=== PATIENT | female | born 1975 | race Caucasian/White ===

== ENCOUNTER 2019-06-06 23:06 | Emergency (ER) | payer MEDICAID ==
--- NOTE | 2019-06-06 23:41 | EDM.PDOC ---
ED HPI GENERAL MEDICAL PROBLEM - General Chief Complaint: Cardiovascular Problem Stated Complaint: [facility] Time Seen by Provider: 06/06/19 23:20 Source of Information: Reports: Patient, EMS History Limitations: Reports: Other (Patient admits being under the effects of methamphetamine) - History of Present Illness INITIAL COMMENTS - FREE TEXT/NARRATIVE: 44-year-old female feels fluttering in her chest, intermittent chest discomfort and pressure. This is been bothering her for the last 4 hours, she admits trying methamphetamine for the first time earlier in the afternoon. She also has some chronic upper abdominal discomfort which has been worked up and evaluated but nothing is been found. She is concerned about that as well. She feels like her heart is fluttering, discomfort is radiating up into the left neck. When EMS arrived she was hypertensive and anxious, 324 mg of aspirin and 2 sprays of nitroglycerin were given in route. She has now calmed down and her blood pressure is normal but she still feels like her heart is irregular and fluttering, however she is on cardiac monitoring and she is in a normal sinus rhythm with a rate around 70. She has no ectopics. She had blood test just 2 weeks ago and they were working upper abdominal pain. Onset: Unknown/Unsure Associated Symptoms: Reports: Chest Pain, Malaise, Other (Palpitations, chest pressure, abdominal pressure). Denies: Confusion, Cough, Diaphoresis, Nausea/ Vomiting, Weakness - Related Data Allergies Allergy/AdvReac Type Severity Reaction Status Date / Time amoxicillin Allergy Hives Verified 06/06/19 23:12 Sulfa (Sulfonamide Allergy Hives Verified 06/06/19 23:12 Antibiotics) Home Meds: Home Meds . [Unable to Verify Home Med List] 06/06/19 [History] Past Medical History Respiratory History: Reports: COPD Genitourinary History: Reports: Renal Calculus Neurological History: Reports: Migraines Psychiatric History: Reports: Dementia Endocrine/Metabolic History: Reports: Obesity/BMI 30+ Hematologic History: Reports: Other (See Below) Other Hematologic History: vitamin D deficiency Oncologic (Cancer) History: Reports: Malignant Melanoma - Past Surgical History Head Surgeries/Procedures: Reports: None Respiratory Surgical History: Reports: None Female Surgical History: Reports: None Endocrine Surgical History: Reports: None Neurological Surgical History: Reports: None Oncologic Surgical History: Reports: Other (See Below) Other Oncologic Surgeries/Procedures: surgically removed Dermatological Surgical History: Reports: None Social & Family History - Family History Family Medical History: Noncontributory - Tobacco Use Smoking Status *Q: Current Every Day Smoker Years of Tobacco use: 29 Packs/Tins Daily: 1 - Caffeine Use Caffeine Use: Reports: Soda - Recreational Drug Use Recreational Drug Use: Yes Drug Use in Last 12 Months: Yes Recreational Drug Type: Reports: Methamphetamine Recreational Drug Use Frequency: Rarely ED ROS GENERAL - Review of Systems Review Of Systems: See Below Constitutional: Reports: Malaise. Denies: Fever, Chills HEENT: Reports: No Symptoms Respiratory: Reports: Shortness of Breath Cardiovascular: Reports: Chest Pain, Palpitations Endocrine: Reports: No Symptoms GI/Abdominal: Reports: Abdominal Pain. Denies: Nausea, Vomiting : Reports: No Symptoms Musculoskeletal: Reports: Other (Intermittent right ankle and leg swelling) Skin: Reports: No Symptoms ED EXAM, GENERAL - Physical Exam Exam: See Below Exam Limited By: No Limitations General Appearance: Alert, Anxious Eye Exam: Bilateral Eye: Normal Inspection Head: Atraumatic Neck: Supple Respiratory/Chest: No Respiratory Distress, Lungs Clear Cardiovascular: Regular Rate, Rhythm. No: Tachycardia, Extra Beats GI/Abdominal: Soft, Tender (Some mild discomfort to palpation across the upper abdomen but no guarding or rebound) Extremities: Normal Inspection Neurological: Alert, Oriented, No Motor/Sensory Deficits Psychiatric: Anxious Skin Exam: Warm, Dry Course - Vital Signs Last Recorded V/S: Last Vital Signs Temp 96.9 F 06/06/19 23:07 Pulse 63 06/06/19 23:07 Resp 16 06/06/19 23:07 BP 122/71 06/06/19 23:07 Pulse Ox 98 06/06/19 23:07 - Re-Assessments/Exams Free Text/Narrative Re-Assessment/Exam: 06/06/19 23:40 EKG reviewed by EMS was normal. Cardiac monitoring is normal. I explained to the patient that the symptoms are very likely effects from the methamphetamine she took earlier today. I offered her further workup but she declined. I recommended increasing her omeprazole to twice daily for the next 7-14 days. Departure - Departure Time of Disposition: 23:55 Disposition: Home, Self-Care 01 Clinical Impression: Palpitations, Atypical chest pain Instructions: Nonspecific Chest Pain, [id number] Referrals: PCP,None [Primary Care Provider] - Forms: ED Department Discharge Care Plan Goals: Consider increasing her omeprazole to twice daily for 7-14 days. Increase diet and activity as tolerated and recheck in 2-3 days if not improving satisfactorily.
== END 2019-06-06 23:55 | disposition home or self-care (01) ==
LOC: JP.ED 23:06
DX: R07.89 Other chest pain (principal); R00.2 Palpitations; F17.210 Nicotine dependence, cigarettes, uncomplicated; Z88.1 Allergy status to other antibiotic agents; Z88.2 Allergy status to sulfonamides
CPT/HCPCS: 99284

== ENCOUNTER 2019-08-06 18:21 | Emergency (ER) | payer MEDICAID ==
[2019-08-06] MEDS ORDERED: Lactated Ringers 1,000 ML IV ONE (19:12)
[2019-08-06] MEDS ORDERED: Alum Hydrox/Mag Hydrox/Simeth 15 ML, Lidocaine 2% 15 ML PO ONE ×2 (19:12)
--- NOTE | 2019-08-06 19:18 | EDM.PDOC ---
ED HPI GENERAL MEDICAL PROBLEM - General Chief Complaint: Abdominal Pain Stated Complaint: PAIN IN CHEST FOR YEARS Time Seen by Provider: 08/06/19 19:00 Source of Information: Reports: Patient, Old Records, RN History Limitations: Reports: No Limitations - History of Present Illness INITIAL COMMENTS - FREE TEXT/NARRATIVE: 44 yo female sees a provider in [place], [place]. Has been to this provider for intermittent epigastric pain. Was told that if this pain came back to return to the clinic. Minnie has now had the pain for a week continuously and it is getting worse. Even so, she has not contacted her primary about this. Denies fever or vomiting. No BM for the past nearly a week. No black or bloody stools. Reports dizziness with standing. No self treatment. Has had a tubal ligation as her only abdominal surgery. Denies heavy or daily alcohol use. States that certain foods make her pain worse, alvarado. peanuts. Had roast beef before coming in that really made her pain worse. Thinks its her gallbladder. The last stool she did have was loose. Onset: Gradual Onset Date: 07/30/19 Duration: Week(s): (1), Getting Worse Location: Reports: Abdomen (epigastric) Quality: Reports: Ache Severity: Severe Improves with: Reports: None Worsens with: Reports: Other (time) Context: Reports: Other (see HPI) Associated Symptoms: Reports: No Other Symptoms Treatments ARRT TECHNOLOGIST: Reports: Other (see below) (none) Left Upper Pain Score (Numeric/FACES): 10 - Related Data Allergies Allergy/AdvReac Type Severity Reaction Status Date / Time amoxicillin Allergy Hives Verified 08/06/19 18:41 Sulfa (Sulfonamide Allergy Hives Verified 08/06/19 18:41 Antibiotics) Home Meds: Home Meds Albuterol [Proventil Neb Soln] 1 dose IH ASDIRECTED 08/06/19 [History] Omeprazole 20 mg PO DAILY 08/06/19 [History] Propranolol [Inderal LA 24 Hr] 80 mg PO DAILY 08/06/19 [History] Past Medical History HEENT History: Reports: Impaired Vision Respiratory History: Reports: COPD Genitourinary History: Reports: Renal Calculus [employer] History: Reports: , Other (See Below) Neurological History: Reports: Migraines Psychiatric History: Reports: Anxiety Endocrine/Metabolic History: Reports: Obesity/BMI 30+ Hematologic History: Reports: Other (See Below) Other Hematologic History: vitamin D deficiency Oncologic (Cancer) History: Reports: Cervix, Malignant Melanoma - Past Surgical History Head Surgeries/Procedures: Reports: None HEENT Surgical History: Reports: None Respiratory Surgical History: Reports: None Female Surgical History: Reports: None, Cervical Cryotherapy Endocrine Surgical History: Reports: None Neurological Surgical History: Reports: None Oncologic Surgical History: Reports: Other (See Below) Other Oncologic Surgeries/Procedures: surgically removed Dermatological Surgical History: Reports: None Social & Family History - Family History Family Medical History: Noncontributory - Tobacco Use Smoking Status *Q: Current Every Day Smoker Years of Tobacco use: 30 Packs/Tins Daily: 1 Used Tobacco, but Quit: No Second Hand Smoke Exposure: Yes - Caffeine Use Caffeine Use: Reports: Coffee, Soda - Recreational Drug Use Recreational Drug Use: No ED ROS GENERAL - Review of Systems Review Of Systems: See Below Constitutional: Reports: No Symptoms HEENT: Reports: No Symptoms Respiratory: Reports: No Symptoms Cardiovascular: Reports: No Symptoms Endocrine: Reports: No Symptoms GI/Abdominal: Reports: Abdominal Pain. Denies: Black Stool, Constipation, Diarrhea, Distension, Hematemesis, Hematochezia, Nausea, Vomiting : Reports: No Symptoms Musculoskeletal: Reports: No Symptoms Skin: Reports: No Symptoms Neurological: Reports: No Symptoms Psychiatric: Reports: No Symptoms ED EXAM, GI/ABD - Physical Exam Exam: See Below Exam Limited By: No Limitations General Appearance: Alert, WD/WN, Mild Distress Eyes: Bilateral: Normal Appearance Ears: Normal External Exam, Normal Canal, Hearing Grossly Normal Nose: Normal Inspection, No Blood Throat/Mouth: Normal Inspection, Normal Lips, Normal Oropharynx, Normal Voice, No Airway Compromise Head: Atraumatic, Normocephalic Neck: Normal Inspection Respiratory/Chest: No Respiratory Distress, Lungs Clear, Normal Breath Sounds, No Accessory Muscle Use Cardiovascular: Regular Rate, Rhythm, No Edema, Tachycardia GI/Abdominal Exam: Normal Bowel Sounds, Soft, No Distention, Tender (epigastrium ), Abnormal Bowel Sounds (decreased). No: Non-Tender, Distended, Guarding, Rigid, Rebound Extremities: Normal Inspection, Normal Range of Motion, Non-Tender, No Pedal Edema Neurological: Alert, Oriented, CN II-XII Intact, Normal Cognition, No Motor/ Sensory Deficits Psychiatric: Normal Affect, Normal Mood Skin Exam: Warm, Dry, Intact, Normal Color, No Rash Course - Vital Signs Text/Narrative:: No change with GI cocktail. Last Recorded V/S: Last Vital Signs Temp 35.9 C 08/06/19 18:44 Pulse 128 H 08/06/19 19:33 Resp 36 H 08/06/19 19:33 BP 169/105 H 08/06/19 19:33 Pulse Ox 100 08/06/19 19:33 - Orders/Labs/Meds Orders: Active Orders 24 hr Category Date Time Status Enema [RC] ASDIRECTED Care 08/06/19 21:06 Active Labs: Laboratory Tests 08/06/19 08/06/19 08/06/19 Range/Units 19:12 19:12 19:49 WBC 9.2 (4.5-11.0) K/uL RBC 4.99 (3.30-5.50) M/uL Hgb 15.8 H (12.0-15.0) g/dL Hct 46.8 (36.0-48.0) % MCV 94 (80-98) fL MCH 32 H (27-31) pg MCHC 34 (32-36) % Plt Count 178 (150-400) K/uL Sodium 139 L (140-148) mmol/L Potassium 3.1 L (3.6-5.2) mmol/L Chloride 101 (100-108) mmol/L Carbon Dioxide 23 (21-32) mmol/L Anion Gap 18.1 H (5.0-14.0) mmol/L BUN 9 (7-18) mg/dL Creatinine 1.0 (0.6-1.0) mg/dL Est Cr Clr Drug Dosing 52.10 mL/min Estimated GFR (MDRD) > 60 (>60) Glucose 89 (74-106) mg/dL Calcium 9.6 (8.5-10.1) mg/dL Magnesium 1.7 L (1.8-2.4) mg/dL Total Bilirubin 0.9 (0.2-1.0) mg/dL AST 18 (15-37) U/L ALT 35 (12-78) U/L Alkaline Phosphatase 86 (46-116) U/L Total Protein 7.4 (6.4-8.2) g/dL Albumin 3.9 (3.4-5.0) g/dL Globulin 3.5 (2.3-3.5) g/dL Albumin/Globulin Ratio 1.1 L (1.2-2.2) Lipase 304 (73-393) U/L Meds: Medications Discontinued Medications Generic Name Dose Route Start Last Admin Trade Name Freq PRN Reason Stop Dose Admin Al Hydroxide/Mg Hydroxide 15 0 ml 08/06/19 19:12 08/06/19 19:23 ml/ Lidocaine HCl 15 ml PO 08/06/19 19:13 30 ml ONETIME ONE Administration Hydromorphone HCl 1 mg 08/06/19 19:29 08/06/19 19:31 Dilaudid IVPUSH 08/06/19 19:30 1 mg ONETIME ONE Administration Lactated Ringer's 1,000 mls @ 1,000 mls/hr 08/06/19 19:12 08/06/19 19:24 Ringers, Lactated IV 08/06/19 20:11 1,000 mls/hr BOLUS ONE Administration Magnesium Oxide 800 mg 08/06/19 20:11 08/06/19 20:21 Magnesium Oxide PO 08/06/19 20:12 800 mg ONETIME ONE Administration Ondansetron HCl 4 mg 08/06/19 20:45 08/06/19 20:51 Zofran IVPUSH 08/06/19 20:46 4 mg ONETIME ONE Administration Polyethylene Glycol 34 gm 08/06/19 21:04 08/06/19 21:20 Miralax PO 08/06/19 21:05 34 gm ONETIME ONE Administration Potassium Chloride 20 meq 08/06/19 19:47 08/06/19 19:53 Potassium Chloride PO 08/06/19 19:48 20 meq ONETIME ONE Administration - Radiology Interpretation Free Text/Narrative:: Single view abdomen X-ray- Findings: The bowel gas pattern is nonobstructive. A moderate to large amount of stool is identified within the descending colon and distal transverse colon. Impression: Moderate stool. Nonobstructive bowel gas pattern Dictated by Naomi Felix MD @ Aug 06 2019 8:53PM Departure - Departure Time of Disposition: 21:30 Disposition: Home, Self-Care 01 Condition: Fair Clinical Impression: Biliary colic Constipation Qualifiers: Constipation type: slow transit constipation Qualified Code(s): K59.01 - Slow transit constipation - Discharge Information *PRESCRIPTION DRUG MONITORING PROGRAM REVIEWED*: No *COPY OF PRESCRIPTION DRUG MONITORING REPORT IN PATIENT [place]: No Instructions: Constipation, Adult, Cholelithiasis, [id number] Referrals: PCP,None [Primary Care Provider] - Forms: ED Department Discharge Additional Instructions: Take Miralax once or twice daily to keep bowels moving and soft. Take Zofran as needed for nausea control. Take [place] OR acetaminophen for pain relief. F/U with surgery regarding what is likely biliary colic. Avoid fat in your diet to avoid triggering gall bladder pain. Return as needed. - My Orders Last 24 Hours: My Active Orders 08/06/19 21:06 Enema [RC] ASDIRECTED - Assessment/Plan Last 24 Hours: My Active Orders 08/06/19 21:06 Enema [RC] ASDIRECTED
[2019-08-06] MEDS ORDERED: HYDROmorphone 1 MG/ML Syringe IVPUSH ONE (19:29)
[2019-08-06] MEDS ORDERED: Potassium Chloride 10 MEQ Cap.ER PO ONE (19:47)
[2019-08-06] MEDS ORDERED: Magnesium Oxide 400 MG Tab PO ONE (20:11)
[2019-08-06] MEDS ORDERED: Ondansetron 4 MG/2 ML SDV IVPUSH ONE (20:45)
--- NOTE | 2019-08-06 20:54 | CRLCR ---
Indication: Abdominal pain. No BM for several days. Technique: An AP view of the abdomen and pelvis was obtained. Comparison: None Findings: The bowel gas pattern is nonobstructive. A moderate to large amount of stool is identified within the descending colon and distal transverse colon. Impression: Moderate stool. Nonobstructive bowel gas pattern Dictated by Naomi Felix MD @ Aug 06 2019 8:53PM Signed by Dr. Naomi Felix @ Aug 06 2019 8:54PM
[2019-08-06] MEDS ORDERED: Polyethylene Glycol 3350 Powder 17 GM Packet PO ONE (21:04)
== END 2019-08-06 21:38 | disposition home or self-care (01) ==
LOC: JP.ED 18:21
DX: K59.01 Slow transit constipation (principal); K80.50 Calculus of bile duct without cholangitis or cholecystitis without obstruction; J44.9 Chronic obstructive pulmonary disease, unspecified; E66.9 Obesity, unspecified; F17.210 Nicotine dependence, cigarettes, uncomplicated; Z88.1 Allergy status to other antibiotic agents; Z88.2 Allergy status to sulfonamides; Z79.899 Other long term (current) drug therapy; Z68.36 Body mass index [BMI] 36.0-36.9, adult
CPT/HCPCS: 36415; 74018; 80053; 83690; 83735; 85027; 96361; 96374; 96375; 99285-25; A9270-GY; J1170; J2405; J7120

== ENCOUNTER → 2019-09-20 | Day surgery (SDC) | payer MEDICAID ==
[~2019-09-20] MED LIST: Dextrose 5%-Lactated Ringers 1,000 ML IV SCH; Glycopyrrolate 0.2 MG/ML 2 ML SDV IVPUSH ONE; Iopamidol 612 MG/ML 100 ML Bottle IV SCH; Midazolam 1 MG/ML 2 ML SDV ONE; Propofol 200 MG/20 ML SDV ONE; Sodium Chloride 0.9% 10 ML Syringe FLUSH ONE; fentaNYL 100 MCG/2 ML SDV ONE
--- NOTE | 2019-09-20 15:02 | CRLCT ---
INDICATION: Evaluate left-sided abdominal pain and nausea COMPARISON: None TECHNIQUE: CT examination of the abdomen and pelvis was performed following the uneventful intravenous administration of 100 cc of Isovue 300. Thin section axial images were obtained from the lung bases through the pubic symphysis. Oral contrast was administered Please note that all CT scans at this facility use dose modulation, iterative reconstruction, and/or weight-based dosing when appropriate to reduce radiation dose to as low as reasonably achievable. FINDINGS: LUNG BASES: Upper lobe airspace process likely atelectasis. The heart size is normal at the lung bases LIVER/BILIARY SYSTEM:The liver is normal in size and configuration. There are findings suggesting steatosis. There is no focal mass and there is no intra- or extra hepatic biliary ductal dilatation.The gall bladder appears normal. ADRENALS: Normal KIDNEYS, URETERS and BLADDER:The kidneys appear normal. No visible mass, calculus or hydronephrosis. The ureters and bladder as visualized appear normal. The ureters are prominent but there are bilateral and symmetric without pelvocaliectasis and therefore felt to be within normal limits SPLEEN:Normal appearance. PANCREAS: Appears normal. RETROPERITONEUM and MESENTERY: There is no mass, adenopathy or aortic aneurysm. There are atherosclerotic vascular calcifications of the aorta GASTROINTESTINAL SYSTEM: There is no evidence of diverticulitis, colitis, mechanical obstruction, or appendicitis. The small bowel as visualized appears normal.Scattered diverticula PELVIS: Myomatous uterus. No adenopathy or free fluid. OSSEOUS STRUCTURES and ABDOMINAL WALL: There is an age-appropriate appearance of the osseous structures.No significant abdominal wall defect. OTHER: No free fluid or free air. IMPRESSION: 1. Left lower lobe airspace process likely atelectasis. 2. There is no definite finding to explain left-sided abdominal pain. Incidental findings include hepatic steatosis, atherosclerotic changes of aorta and diverticulosis. There are also findings suggesting a myomatous uterus Please note that all CT scans at this facility use dose modulation, iterative reconstruction, and/or weight-based dosing when appropriate to reduce radiation dose to as low as reasonably achievable. Dictated by Danny Marquez MD @ Sep 20 2019 2:52PM Signed by Dr. Danny Marquez @ Sep 20 2019 3:00PM
--- NOTE | 2019-09-22 13:01 | OR ---
DATE OF PROCEDURE: 09/20/2019 SURGEON: Danny Avelar MD PREOPERATIVE DIAGNOSES: Epigastric pain and nausea. POSTOPERATIVE DIAGNOSES: Epigastric pain and nausea associated with very mild antral gastritis. OPERATIVE PROCEDURES: Esophagogastroduodenoscopy with antral biopsies for CLOtest. ANESTHESIA: IV sedation. INDICATION FOR PROCEDURE: This is a 44-year-old presenting with some ongoing upper abdominal pain. The pain is epigastric with some tendency for it to be on the left side more than on the right. Workup thus far has included some blood work which was normal including a normal lipase and amylase done in the emergency room and a CCK stimulated HIDA scan which showed an essentially 100% ejection fraction with the CCK injection not reproducing any of the patient's symptoms. The patient at this point is to undergo an upper GI endoscopy for diagnostic purposes. Potential risks including bleeding and perforation were discussed, and the patient wishes to proceed. DETAILS OF THE PROCEDURE: The patient was taken to the operating room and placed in a left lateral decubitus position. IV sedation was administered, after which the upper GI endoscope was passed orally through the length of the esophagus and into the stomach with retroflexion view of the fundus, thereafter through the pyloric channel into the junction of the third and fourth portions of the duodenum. Findings included normal hypopharynx, larynx, upper esophageal sphincter, and esophageal body. At the EG junction, no hiatal hernia was noted and there was no significant gross inflammation. Within the stomach, there was a small amount of retained bile. Other than for some extremely mild antral gastritis consisting of a very vague sense of redness and edema, no abnormalities were noted in the stomach, and pyloric channel and visualized portions of the duodenum were unremarkable. Biopsies were then obtained from the antrum and sent for CLOtest for H pylori. No bleeding from the biopsy site was seen, and the procedure was then concluded. Given the findings, the patient was set up for a CAT scan of the abdomen and pelvis. This showed some minor atelectasis in the left base with which the patient has had no pulmonary symptoms. I suspect this may be related to the earlier. Otherwise, there were no abnormalities noted within the abdomen. Given the negative workup at this point and the patient's continued symptoms, we will proceed with obtaining a gastroenterology consult in [place]. Danny Avelar MD /[id number]
== END ==
LOC: JP.SDS 08:41
PROVIDERS: ATTEND Surgery
DX: K29.70 Gastritis, unspecified, without bleeding (principal); K21.9 Gastro-esophageal reflux disease without esophagitis; E66.9 Obesity, unspecified; J44.9 Chronic obstructive pulmonary disease, unspecified; F17.210 Nicotine dependence, cigarettes, uncomplicated; F32.9 Major depressive disorder, single episode, unspecified; G47.33 Obstructive sleep apnea (adult) (pediatric); Z88.2 Allergy status to sulfonamides; Z88.0 Allergy status to penicillin
CPT/HCPCS: 43239; 74177; 87081; J2250; J2704; J3010; J3490; J7050; J7121; Q9967

== ENCOUNTER 2019-09-25 12:12 | Emergency (ER) | payer MEDICAID ==
[2019-09-25] MEDS ORDERED: Atropine/Hyoscyamine/PHENobarbital/Scopolamine Elixir 10 ML UD PO ONE (13:00)
[2019-09-25] MEDS ORDERED: Acetaminophen 160 MG Tab,Disintegrating PO ONE (13:01)
[2019-09-25] MEDS ORDERED: Acetaminophen 500 MG Tab PO ONE (13:01)
--- NOTE | 2019-09-25 13:09 | EDM.PDOC ---
ED HPI GENERAL MEDICAL PROBLEM - General Chief Complaint: Abdominal Pain Stated Complaint: UPPER ABD PAIN CHILLS, LOOSE STOOLS Time Seen by Provider: 09/25/19 13:00 Source of Information: Reports: Patient, Old Records, RN History Limitations: Reports: No Limitations - History of Present Illness INITIAL COMMENTS - FREE TEXT/NARRATIVE: 44 yo female presents with about a 3 mos hx of intestinal cramping, diarrhea, and weight loss. Has had a fairly extensive work up here with no definite dx made yet. Has been referred to GI in [place] for the near future. Says she's living off [employer] and yogurt without much relief, still having diarrhea. Sx' s are a little worse today. Onset: Unknown/Unsure Duration: Chronic, Waxing/Waning Location: Reports: Abdomen Quality: Reports: Other (cramping) Severity: Moderate Improves with: Reports: Other (improves, but not a lot, by restricting diet) Worsens with: Reports: Other (eating) Context: Reports: Other Associated Symptoms: Reports: Headaches (mild at times). 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: Other (see below) (took one ibuprofen) Left Upper Abdominal Pain Score (Numeric/FACES): 9 - Related Data Allergies Allergy/AdvReac Type Severity Reaction Status Date / Time amoxicillin Allergy Hives Verified 09/25/19 12:37 Sulfa (Sulfonamide Allergy Hives Verified 09/25/19 12:37 Antibiotics) Home Meds: Home Meds Albuterol [Proventil Neb Soln] 1 dose IH ASDIRECTED PRN 08/06/19 [History] Omeprazole 20 mg PO DAILY 08/06/19 [History] FLUoxetine [PROzac] 10 mg PO DAILY 09/19/19 [History] Promethazine [Phenergan] 25 mg PO Q6H PRN 09/19/19 [History] Past Medical History HEENT History: Reports: Impaired Vision Respiratory History: Reports: COPD Gastrointestinal History: Reports: GERD Genitourinary History: Reports: Renal Calculus, UTI, Recurrent RESOURCE AGENT History: Reports: Neurological History: Reports: Migraines Psychiatric History: Reports: Anxiety, Depression Endocrine/Metabolic History: Reports: Obesity/BMI 30+ Hematologic History: Reports: Anemia, Other (See Below) Other Hematologic History: vitamin D deficiency Oncologic (Cancer) History: Reports: Cervix, Malignant Melanoma Dermatologic History: Reports: Other (See Below) Other Dermatologic History: keloid scars - Infectious Disease History Infectious Disease History: Reports: Chicken Pox - Past Surgical History GI Surgical History: Reports: EGD Female Surgical History: Reports: Cervical Cryotherapy, Tubal Ligation Oncologic Surgical History: Reports: Other (See Below) Other Oncologic Surgeries/Procedures: surgically removed Social & Family History - Family History Family Medical History: Noncontributory - Tobacco Use Smoking Status *Q: Light Tobacco Smoker Years of Tobacco use: 25 Packs/Tins Daily: 0.5 - Caffeine Use Caffeine Use: Reports: Soda - Recreational Drug Use Recreational Drug Use: No ED ROS GENERAL - Review of Systems Review Of Systems: See Below Constitutional: Reports: No Symptoms HEENT: Reports: No Symptoms Respiratory: Reports: No Symptoms Cardiovascular: Reports: No Symptoms GI/Abdominal: Reports: Abdominal Pain (cramping), Diarrhea. Denies: Black Stool , Bloody Stool, Constipation, Hematochezia, Melena : Reports: No Symptoms Musculoskeletal: Reports: No Symptoms Skin: Reports: No Symptoms Neurological: Reports: No Symptoms Psychiatric: Reports: No Symptoms ED EXAM, GI/ABD - Physical Exam Exam: See Below Exam Limited By: No Limitations General Appearance: Alert, WD/WN, No Apparent Distress Eyes: Bilateral: Normal Appearance, EOMI Ears: Normal External Exam, Normal Canal, Hearing Grossly Normal, Normal TMs Nose: Normal Inspection, No Blood Throat/Mouth: Normal Inspection, Normal Lips, Normal Oropharynx, Normal Voice, No Airway Compromise Head: Atraumatic, Normocephalic Neck: Normal Inspection Respiratory/Chest: No Respiratory Distress, Lungs Clear, Normal Breath Sounds, No Accessory Muscle Use Cardiovascular: Regular Rate, Rhythm, No Edema GI/Abdominal Exam: Normal Bowel Sounds, Soft, No Distention, Tender (mild, diffuse). No: Distended, Guarding, Rigid, Rebound Back Exam: Normal Inspection. No: CVA Tenderness (R), CVA Tenderness (L) Extremities: Normal Inspection, Normal Range of Motion, Non-Tender, No Pedal Edema Neurological: Alert, Oriented, CN II-XII Intact, Normal Cognition, No Motor/ Sensory Deficits Psychiatric: Normal Affect, Normal Mood Skin Exam: Warm, Dry, Intact, Normal Color, No Rash Course - Vital Signs Text/Narrative:: no change with 10 ml po Last Recorded V/S: Last Vital Signs Temp 35.8 C 09/25/19 13:35 Pulse 89 09/25/19 13:35 Resp 16 09/25/19 13:35 BP 150/89 H 09/25/19 13:35 Pulse Ox 98 09/25/19 13:35 Orthostatic Blood Pressure [ 119/88 Standing] Orthostatic Blood Pressure [ 141/99 Sitting] Orthostatic Blood Pressure [ 130/85 Supine] - Orders/Labs/Meds Orders: Active Orders 24 hr Category Date Time Status Orthostatic Vital Signs [RC] ASDIRECTED Care 09/25/19 13:04 Active Labs: Laboratory Tests 09/25/19 Range/Units 13:09 Sodium 140 (140-148) mmol/L Potassium 4.2 (3.6-5.2) mmol/L Chloride 103 (100-108) mmol/L Carbon Dioxide 26 (21-32) mmol/L Anion Gap 11.0 (5.0-14.0) mmol/L BUN 3 L D (7-18) mg/dL Creatinine 0.8 (0.6-1.0) mg/dL Est Cr Clr Drug Dosing TNP Estimated GFR (MDRD) > 60 (>60) Glucose 92 (74-106) mg/dL Calcium 8.9 (8.5-10.1) mg/dL Meds: Medications Discontinued Medications Generic Name Dose Route Start Last Admin Trade Name Freq PRN Reason Stop Dose Admin Acetaminophen 1,000 mg 09/25/19 13:01 09/25/19 13:30 Tylenol Extra Strength PO 09/25/19 13:02 1,000 mg ONETIME ONE Administration Acetaminophen 320 mg 09/25/19 13:01 Tylenol Jr. Meltaways PO 09/25/19 13:02 ONETIME ONE Belladonna/Phenobarbital 10 ml 09/25/19 13:00 09/25/19 13:30 Elixir PO 09/25/19 13:01 10 ml ONETIME ONE Administration Departure - Departure Time of Disposition: 14:24 Disposition: Home, Self-Care 01 Condition: Fair Clinical Impression: Diarrhea Qualifiers: Diarrhea type: unspecified type Qualified Code(s): R19.7 - Diarrhea, unspecified - Discharge Information *PRESCRIPTION DRUG MONITORING PROGRAM REVIEWED*: No *COPY OF PRESCRIPTION DRUG MONITORING REPORT IN PATIENT [place]UST[place]: No Referrals: Renetta Pablo PA [Primary Care Provider] - Forms: ED Department Discharge Additional Instructions: Continue current plan. Consider substituting acetaminophen for ibuprofen for pain relief. Try loperamide starting with a very low dose and gradually increasing to see if this reduces the frequency of your diarrhea stools. Sepsis Event Note - Focused Exam Vital Signs: Vital Signs Temp Pulse Resp BP Pulse Ox 09/25/19 13:35 35.8 C 89 16 150/89 H 98 09/25/19 12:16 35.8 C 89 16 150/89 H 98 Date Exam was Performed: 09/25/19 Time Exam was Performed: 14:24 - My Orders Last 24 Hours: My Active Orders 09/25/19 13:04 Orthostatic Vital Signs [RC] ASDIRECTED - Assessment/Plan Last 24 Hours: My Active Orders 09/25/19 13:04 Orthostatic Vital Signs [RC] ASDIRECTED
== END 2019-09-25 14:43 | disposition home or self-care (01) ==
LOC: JP.ED 12:12
DX: R19.7 Diarrhea, unspecified (principal); H54.7 Unspecified visual loss; J44.9 Chronic obstructive pulmonary disease, unspecified; K21.9 Gastro-esophageal reflux disease without esophagitis; Z88.1 Allergy status to other antibiotic agents; Z88.2 Allergy status to sulfonamides; Z79.899 Other long term (current) drug therapy
CPT/HCPCS: 36415; 80048; 99284; A9270

== ENCOUNTER 2024-08-05 18:48 | Emergency (ER) | payer MEDICAID ==
[2024-08-05] MEDS: Lidocaine 2% Viscous Solution 15 ML UD PO PRN (21:59)
[2024-08-05] MEDS: Ketorolac 30 MG/ML SDV IM ONE (21:59)
== END 2024-08-05 22:08 | disposition home or self-care (01) ==
LOC: JP.ED 18:48
DX: K02.62 Dental caries on smooth surface penetrating into dentin (principal); K12.2 Cellulitis and abscess of mouth; J44.9 Chronic obstructive pulmonary disease, unspecified; E66.9 Obesity, unspecified; Z68.23 Body mass index [BMI] 23.0-23.9, adult; F17.210 Nicotine dependence, cigarettes, uncomplicated; Z88.0 Allergy status to penicillin; Z88.2 Allergy status to sulfonamides
CPT/HCPCS: 41800; 96372; 99282; A9270; J1885; 99283